=== PATIENT | female | born 1975 | race Caucasian/White ===

== ENCOUNTER 2016-09-09 01:46 | Emergency (ER) | payer OTHER ==
[2016-09-09 02:11] VITALS: BP 116/71; PULSE 95; TEMP 98.7; BMI 28.3
[2016-09-09 02:39] LABS: MCH 20.1 pg (25.7-33.7); MCHC 31.1 g/dl (32.0-36.0); MEAN CELL VOLUME 64.8 fl (80-96); MEAN PLT VOLUME 8.4 fl (7.5-11.1); PLATELET COUNT 250 K/MM3 (134-434); RDW 16.6 % (11.6-15.6)
--- NOTE | 2016-09-09 02:41 | PDOC ---
History of Present Illness - General Chief Complaint: Palpitations Stated Complaint: PALPITATIONS Time Seen by Provider: 09/09/16 01:54 History Source: Patient Exam Limitations: No Limitations - History of Present Illness Initial Comments: 09/09/16 02:31 Patient is a 41-year-old female with history of anemia history complaining of tachycardia since yesterday. States in the daytime hours she is fine however when she goes to sleep at night that's when she gets the symptoms. Tonight states she was sleeping and it woke her up from sleep about half an hour ago. States she had no chest pain, no nausea/vomiting, shortness of breath, sweating. She denies any stressors. She had a prior episode of the same symptoms approximately one year ago in [place] was told she was she had anemia. Currently feeling better on arrival to the emergency room. Per EMS heart rate was about 115 when they arrived. Denies recent travel, leg swelling , not on OCP, family history negative for DVT/PE PMD: Dr. Sanchez PMHx: As above PSocHx: neg drugs, neg cigarette, neg EtOH PFamHx: Noncontributory ALL: NKDA GENERAL/CONSTITUTIONAL: [No fever or chills. No weakness. No weight change.] HEAD, EYES, EARS, NOSE AND THROAT: [No change in vision. No ear pain or discharge. No sore throat.] CARDIOVASCULAR: [No chest pain or shortness of breath.] RESPIRATORY: [No cough, wheezing, or hemoptysis.] GASTROINTESTINAL: [No nausea, vomiting, diarrhea or constipation. No rectal bleeding.] GENITOURINARY: [No dysuria, frequency, or change in urination.] MUSCULOSKELETAL: [No joint or muscle swelling or pain. No neck or back pain.] SKIN AND BREASTS: [No rash or easy bruising.] NEUROLOGIC: [No headache, vertigo, loss of consciousness, or loss of sensation.] PSYCHIATRIC: [No depression or anxiety.] ENDOCRINE: [No increased thirst. No abnormal weight change.] HEMATOLOGIC/LYMPHATIC: [No anemia, easy bleeding, or history of blood clots.] ALLERGIC/IMMUNOLOGIC: [No hives or skin allergy. No latex allergy.] GENERAL: [The patient is awake, alert, and fully oriented, in no acute distress. ] HEAD: [Normal with no signs of trauma.] EYES: [Pupils equal, round and reactive to light, extraocular movements intact, sclera anicteric, conjunctiva clear.] ENT: [Ears normal, nares patent, oropharynx clear without exudates. Moist mucous membranes.] NECK: [Normal range of motion, supple without lymphadenopathy, JVD, or masses.] LUNGS: [Breath sounds equal, clear to auscultation bilaterally. No wheezes, and no crackles.] HEART: [Regular rate and rhythm, normal S1 and S2 without murmur, rub.] ABDOMEN: [Soft, nontender, normoactive bowel sounds. No guarding, no rebound. No masses.] EXTREMITIES: [Normal range of motion, no edema. No clubbing or cyanosis. No cords, erythema, or tenderness.] NEUROLOGICAL: [Cranial nerves II through XII grossly intact. Normal speech, normal gait.] PSYCH: [Normal mood, normal affect.] SKIN: [Warm, Dry, normal turgor, no rashes or lesions noted.] Past History - Past Medical History Allergies/Adverse Reactions: Allergies Allergy/AdvReac Type Severity Reaction Status Date / Time No Known Allergies Allergy Verified 09/09/16 02:29 Home Medications: Ambulatory Orders NK [No Known Home Medication] 09/09/16 - Psycho/Social/Smoking Cessation Hx Suicidal Ideation: No Smoking History: Never smoked Have you smoked in the past 12 months: No Information on smoking cessation initiated: No Hx Alcohol Use: No Drug/Substance Use Hx: No *Physical Exam - Vital Signs Last Vital Signs Temp Pulse Resp BP Pulse Ox 98.7 F 95 H 20 116/71 100 09/09/16 02:09 09/09/16 02:09 09/09/16 02:09 09/09/16 02:09 09/09/16 02:09 ED Treatment Course - LABORATORY CBC & Chemistry Diagram: 09/09/16 02:30 09/09/16 02:30 Medical Decision Making - Medical Decision Making 09/09/16 02:41 Patient is a 41-year-old female with history of anemia history complaining of tachycardia since yesterday. States in the daytime hours she is fine however when she goes to sleep at night that's when she gets the symptoms. Patient seemed to have transient tachycardia which is not evident in the emergency room on arrival. DDX include but not limited to stress reaction/anxiety, thyroid disease, anemia, Will get routine labs CBC, basic, EKG EKG SR 100, NAD, (-) ST-T wave changes, Nl QTc 09/09/16 03:21 Patient remained stable in the emergency room, she has had no more periods of tachycardia. 09/09/16 03:38 I discussed the physical exam findings, ancillary test results and final diagnoses with the patient. I answered all of the patient's questions. The patient was satisfied with the care received and felt comfortable with the discharge plan and treatment plan. The Patient agrees to follow up with the primary care physician within 24-72 hours. *DC/Admit/Observation/Transfer Diagnosis at time of Disposition: Palpitations - Discharge Dispostion Disposition: HOME Condition at time of disposition: Stable - Referrals Referrals: Baldomero Sanchez MD [Primary Care Provider] - - Patient Instructions Printed Discharge Instructions: DI for Palpitations Additional Instructions: Your Discharge Instructions: You must call primary care physician within 24 hours to arrange follow-up. Return to the Emergency Department with any new, persistent or worsening symptoms, for fever, chills, SOB, dizziness or any other concerning changes that may occur. Print Language: MACEDONIAN - Post Discharge Activity Work/School Note: Back to Work
[2016-09-09 02:59] LABS: CREATININE 0.6 mg/dL (0.55-1.02)
--- NOTE | 2016-09-09 13:40 | EKG ---
Test Reason : Blood Pressure : / mmHG Vent. Rate : 100 BPM Atrial Rate : 100 BPM P-R Int : 156 ms QRS Dur : 078 ms QT Int : 346 ms P-R-T Axes : 067 053 043 degrees QTc Int : 446 ms NORMAL SINUS RHYTHM SEPTAL INFARCT , AGE UNDETERMINED ABNORMAL ECG NO PREVIOUS ECGS AVAILABLE Confirmed by TAHIR PERSON MD ([id number]) on 09/09/2016 1:40:30 PM Referred By: Confirmed By:TAHIR PERSON MD
== END 2016-09-09 03:49 | disposition home or self-care (01) ==
LOC: JER 01:46
DX: R00.2 Palpitations (principal); D64.9 Anemia, unspecified
CPT/HCPCS: 36415; 80048; 85027; 93005; 93010; 99281-25

== ENCOUNTER → 2018-12-05 | Day surgery (SDC) | payer OTHER ==
--- NOTE | 2018-12-06 16:43 | PATH ---
Surgical Pathology Report Patient Name: NICK OLIVIA [facility]. Rec. #: [id number] /Age/Gender: 1975 (Age: 43) / F Account: [id number] Location: RADIOLOGY Taken: 12/05/2018 Received: 12/05/2018 Reported: 12/06/2018 Physicians: Sulma Castro M.D. Specimen(s) Received LEFT BREAST MASS Clinical History Palpable mass Ultrasound findings: Suspicious Final Diagnosis LEFT BREAST, 11-12:00 PALPABLE MASS, ULTRASOUND GUIDED CORE BIOPSY: BREAST TISSUE SHOWING ACUTE AND CHRONIC MASTITIS WITH ABSCESS FORMATION. Electronically Signed Koko Landry M.D. Gross Description Received in formalin labeled "left 11:30," are 3 perez-yellow, cylindrical portions of fibroadipose tissue ranging from 0.7-1.4 cm in length and averaging 0.1 cm in diameter. The specimens are submitted in toto in one cassette. Time to formalin fixation: Less than one minute Total formalin fixation time: Approximately 7 hours. /12/05/2018 [facility]12/05/2018
--- NOTE | 2018-12-07 13:54 | PATH ---
Cytology Non-Gynecological Report Patient Name: NICK OLIVIA [facility]. Rec. #: [id number] /Age/Gender: 1975 (Age: 43) / F Account: [id number] Location: MAMMOGRAPHY- GALVAN Taken: 12/05/2018 Received: 12/06/2018 Reported: 12/07/2018 Physicians: Negar Posada M.D. Specimen(s) Received LEFT BREAST 11:30 Clinical History Left breast palpable mass Final Diagnosis LEFT BREAST, 11:30, ASPIRATION: SATISFACTORY FOR EVALUATION. NEGATIVE FOR MALIGNANT CELLS. MIXED INFLAMMATORY CELLS INCLUDING NEUTROPHILS, MACROPHAGES, AND LYMPHOCYTES PRESENT. ALSO SEE CONCURRENT PATHOLOGY REPORT [id number]. Electronically Signed Koko Landry M.D. Gross Description Approximately 30cc of cloudy fluid received fixed in 50% alcohol. One smear and one cellblock prepared
== END | disposition home or self-care (01) ==
LOC: JMAMMO-SUR 10:28
PROVIDERS: ATTEND Obstetrics & Gynecology
PROC: 0HBU3ZX Excision of Left Breast, Percutaneous Approach, Diagnostic (ICD-10-PCS; principal; 2018-12-05)
PROC: 0H9U3ZX Drainage of Left Breast, Percutaneous Approach, Diagnostic (ICD-10-PCS; 2018-12-05)
DX: N61.1 Abscess of the breast and nipple (principal); N63.22 Unspecified lump in the left breast, upper inner quadrant; N60.02 Solitary cyst of left breast
CPT/HCPCS: 19083; 76942-TC; 87899; 88173; 88305-TC; A4648